=== PATIENT | female | born 1990 | race African-American/Black ===

== ENCOUNTER 2016-11-08 04:32 | Emergency (ER) | payer OTHER ==
[~2016-11-08] VITALS: Ht 177.8 cm; Wt 109.1 kg
[2016-11-08 04:43] VITALS: BP 134/60; PULSE 84; RESP 18; O2SAT 100
--- NOTE | 2016-11-08 04:45 | ED.REPORT ---
HPI-Abd Pain F Under 40 Date of Service Nov 08, 2016 ED Provider: Dr. Javier Colon M.D. The patient is a 26 year old female with a history of frequent UTIs who presents to the ED with hematuria onset last night. The patient reports passing blood clots in her urine. Associated symptoms include dysuria, urinary frequency , urinary urgency, nausea, and vomiting. The patient denies fever or other symptoms. She has had similar symptoms in the past associated with UTI, although without nausea and vomiting. Nursing Notes Stated Complaint: UTI/BLOOD/VOMITING Chief Complaint: Female Abdominal Pain Nursing Notes Reviewed: Yes Allergies: Coded Allergies: No Known Allergies (Unverified Allergy, Unknown, 11/08/16) Scheduled PRN Ondansetron (Ondansetron) 4 Mg Tablet 4 MG PO QID PRN PRN For Nausea General Time Seen by MD: 04:45 Chief Complaint Other (Hematuria) Hx Obtained From: Patient Arrived By: Walk-in Sudden in Onset?: Yes Onset Occurred: 5 - 8 hours ago Symptom Duration: Since onset Severity: Current: No pain currently Severity: Maximum: No pain Pertinent Negative: Relieved by nothing Recent Healthcare: No recent doctor visit Similar Sx Previous: Yes Past Medical History Past Medical History Frequent UTIs Past Surgical History None reported Smoking History Unknown if Ever Smoker Ambulatory Status Independent Review of Systems Constitutional: Denies: Fever Respiratory: Denies: Non-productive cough, Shortness of breath GI: Reports: Nausea, Vomiting Female: Reports: Dysuria, Hematuria, Urinary frequency, Urinary urgency Complete sys rev & neg: except as marked. Physical Exam Initial Vital Signs Vital Signs (First) Date Time Temp Pulse Resp B/P Pulse Ox O2 Delivery O2 Flow Rate FiO2 11/08/16 04:43 36.9 84 18 134/60 100 Room Air Initial VS: Reviewed, Vital signs normal Head / Eyes: Atraumatic, Normocephalic ENT: Conjunctiva normal, No scleral icterus Neck: Supple, Full range of motion Skin: Warm, Dry, No cyanosis Neurologic: Alert, Oriented, Nonfocal Psychiatric: Mood/affect normal, Behavior normal, Normal thought content General/Constitutional: Awake, Alert, No acute distress, Well hydrated Respiratory / Chest: Breath sounds NL, Breath sounds = bilat, No respiratory distress Cardiovascular: Heart rate NL, Regular rhythm, Heart sounds NL Abdomen: Soft, Non-tender Tenderness/Guarding/Rebound: Negative: Tender suprapubic Back: Inspection NL, No CVA tenderness Interpretation & Diagnostics URINE : Negative URINE DIPSTICK: Bedside Urine Specific [place] * 1.025 Bedside Urine pH * 5 Bedside Urine Leukocyte Esterase * ++ Bedside Urine Nitrite * Negative Bedside Urine Protein * +++ (500) Bedside Urine Glucose * Normal Bedside Urine Ketones * Negative Bedside Urine Urobilinogen * Normal Bedside Urine Bilirubin * Negative Bedside Urine Occult Blood * ~ 250 Kevyn/ml Urine to Lab * Yes Lab Results Interpretation Test 11/08/16 04:49 Urine Color Bloody (YELLOW) Urine Appearance Cloudy (CLEAR,HAZY) Urine pH 5.5 (5.0-8.0) Urine Specific [place] 1.030 (1.003-1.035) Urine Protein >300mg/dL (NEG,TRACE) Urine Glucose (UA) Negativemg/dL (NEGATIVE) Urine Ketones Negativemg/dL (NEGATIVE) Urine Occult Blood Large (NEGATIVE) Urine Nitrite Negative (NEGATIVE) Urine Bilirubin Negative (NEGATIVE) Urine Urobilinogen Normalmg/dL (NORMAL) Urine Leukocyte Esterase Small (NEGATIVE) Urine RBC >50/hpf (0-2) Urine WBC Packed/hpf (0-5) Urine Epithelial Cells Moderate/hpf (NONE-MOD) Urine Crystals None seen (NONE SEEN) Urine Bacteria Moderate/hpf (NONE-FEW) Urine Hyaline Casts None/lpf (NONE) Urine Granular Casts None seen (NONE SEEN) Urine Waxy Casts None seen (NONE SEEN) Urine Red Blood Cell Casts None seen (NONE SEEN) Urine White Blood Cell Casts None seen (NONE SEEN) Urine Mucus None seen (None Seen) Urine Trichomonas None seen (NONE SEEN) Urine Yeast None (NONE SEEN) Urinalysis Comment Urine Culture Reflexed Indicated Lab Results Interpretation: Too numerous to count white blood cells per high-power field, culture pending Re-Eval/Medical Decision Med Decision/Clinical Course 26-year-old with uncomplicated hemorrhagic cystitis, culture pending. Re-Evaluation/Progress : Time of Eval: 05:00 Patient Status: Condition improved Re-Evaluation/Progress Note: Discussed with patient diagnosis and plan for discharge after lab work confirmation. Follow-up and return to the ER instructions given. Patient agrees with plan for care and all questions were addressed. Counseled Regarding: Diagnosis, Need for follow-up, When/why to return to ED Discharge & Departure Primary Impression: Urinary tract infection Urinary tract infection type: acute cystitis Hematuria presence: with hematuria Qualified Code: N30.01 - Acute cystitis with hematuria Disposition: Home Discharge Condition All VS Reviewed: Yes Condition: Improved Patient Instructions: Urinary Tract Infection in Women (ED) Additional Instructions: Thank you for entrusting us with your care. Your urine is positive for a urinary tract infection, culture pending. Please take cephalexin 500 mg by mouth 3 times a day, #30 and ondansetron 4 mg dissolved orally 3 times a day as needed for nausea and vomiting, #10. Call your primary care provider tomorrow for a follow-up appointment. Return to the ER with any new or worsening symptoms. Referrals: Anne Murillo MD (PCP) [employer] [facility] Portions of this note were transcribed by Julia Newell. I, Dr. Colon, personally performed the history, physical exam, and medical decision-making; I reviewed and confirmed the accuracy of the information in the transcribed note. Signed by: Fred Gallegos, 11/08/2016, 05:30 copies to: Anne Murillo MD, Howard L MD Nov 08, 2016 04:45 JULIA NEWELL Nov 08, 2016 04:53
[2016-11-08] MEDS ORDERED: Ondansetron 8 mg ODT Tablet PO ONE (04:50)
[2016-11-08 05:00] LABS: APPEARANCE,URINE CLOUDY (CLEAR,HAZY); COLOR,URINE BLOODY (YELLOW); OCCULT BLOOD,URINE LARGE (NEGATIVE); PH,URINE 5.5 (5.0-8.0); UROBILINOGEN,URINE NORMAL (NORMAL)
[2016-11-08] MEDS ORDERED: ONDA-53 PO (05:17)
[2016-11-08 06:11] VITALS: BP 122/73; PULSE 82; RESP 20; O2SAT 98
[2016-11-08] MEDS ORDERED: _Cephalexin 500 mg Capsule PO SCH (08:30)
== END 2016-11-08 06:13 | disposition home or self-care (01) ==
LOC: SED 04:32
DX: N30.01 Acute cystitis with hematuria (principal)